=== PATIENT | female | born 2000 | race Caucasian/White ===

== ENCOUNTER 2020-09-25 22:43 | Observation (INO) | payer BC, SELFPAY ==
--- NOTE | ~2020-09-25 | MR_ITS ---
EXAMINATION: MR brain/brain stem wo/w con EXAM DATE: 09/26/2020 16:53 INDICATION: Confusion . TECHNIQUE: Magnetic resonance imaging (MRI) of the brain/brain stem obtained without contrast. Sagit floirna T1, axial diffusion, gradient echo (T2*), T1, T2, FLAIR sequences obtained. Patient was then inj ected with 20 cc intravenous Multihance contrast. Axial and coronal postcontrast T1 weighted sequence s obtained. Correlation is made to head CT from yesterday. FINDINGS: There are no areas of restricted diffusion to suggest acute infarction. There is no acute hemorrhage seen on the T2*, a hemosiderin sensitive sequence. No intraparenchymal brain mass. The ve ntricles are normal in size. There are no extra-axial collections. Flow voids are seen in the cereb ral arteries on the T2-weighted sequences consistent with their expected patency. The orbits are unr emarkable. Soft tissue is unremarkable. There are no areas of abnormal enhancement on the postcont rast images. IMPRESSION: Normal brain MRI examination. Reviewed, dictated and finalized at location A.
--- NOTE | ~2020-09-25 | CT_ITS ---
EXAMINATION: CT brain wo con DATE: 09/25/2020 23:34 INDICATION: Dizziness TECHNIQUE: Computed tomography (CT) of the head was performed without intravenous contrast. Sagittal and coronal reconstructions were performed. The mA was adjusted according to patient size. Iterative reconstruction technique was employed. The dose-length product was 605.33 mGy-cm. COMPARISON: None FINDINGS: No acute intracranial hemorrhage, acute infarction or abnormal extra axial fluid collection. Ventricl es are normal and symmetric. No mass/mass effect. The orbits, paranasal sinuses and mastoid air cells are normal. IMPRESSION: 1. Normal brain. No acute intracranial process. Reviewed, dictated and finalized at location A.
[2020-09-25 22:42] VITALS: BP 134/75; PULSE 80; RESP 17; TEMP 36.8; O2SAT 98
--- NOTE | 2020-09-25 22:46 | ED.GENADULT ---
HPI - General Adult General Chief complaint: Syncope Stated complaint: sore front of head - loc ; lethargic Time Seen by Provider: 09/25/20 22:45 Source: patient, EMS and RN notes reviewed Mode of arrival: EMS Limitations: no limitations History of Present Illness HPI narrative: Patient is 19 years old white female brought to the emergency room by ambulance from work because of sudden onset of feeling, dizziness and inability to speak clearly. 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 Resolved on arrival to the emergency room. Patient had similar symptoms lasted for almost 3 days at the end of April and beginning of May this year patient did not go to hospital at that time. Patient denies any loss of consciousness, fall or trauma, fever, chills, nausea, vomiting, chest pain, shortness of breath, back pain, abdominal pain or focal neuro deficit. Patient lives with her family, does not have a boyfriend, denies drug or alcohol use. Patient vapes, Review of Systems Review of Systems: Narrative: CONSTITUTIONAL: Denies fever, chills, or sweats. EYES: Denies visual changes, redness, or discharge. ENT: Denies rhinorrhea, congestion, sore throat, or otalgia. CARDIOVASCULAR: Denies chest pain, palpitations, or edema. RESPIRATORY: Denies cough or dyspnea. GASTROINTESTINAL: Denies abdominal pain, nausea, vomiting, or diarrhea. GENITOURINARY: Denies dysuria or hematuria. SKIN: Denies rash or itching. MUSCULOSKELETAL: Denies back pain, joint pain, or myalgia. NEUROLOGIC: Denies headache, numbness, or weakness. PSYCHIATRIC: Denies anxiety or depression. Exam Narrative: Exam Narrative: General appearance: Well-developed, well-nourished Skin: Normal color Head: Normocephalic, nontraumatic Eyes: Clear conjunctiva ENT: Oropharynx normal, ears normal, nose normal Neck: Supple, nontender Chest and respiratory: Airway patent, no respiratory distress, no accessory muscle use Heart: Regular rate/rhythm Abdomen: Soft, nontender, no organomegaly, quiet bowel sounds Vascular: Normal peripheral pulses, normal capillary refill. Musculoskeletal: Normal range of motion, nontender back Neurologic: Alert and oriented ?3, [employer] is normal as tested, no gross motor deficit Course Course Emergency Course: Improving Consultations Consultation #1: DEEJAY Date: 09/26/20 Time: 00:49 Consultation #2: ALEENA Date: 09/26/20 Time: 00:51 Vital Signs Vital signs: Vital Signs Temperature 36.8 C 09/25/20 22:42 Pulse Rate 80 09/25/20 22:42 Respiratory Rate 17 09/25/20 22:42 Blood Pressure 134/75 09/25/20 22:42 Pulse Oximetry 98 09/25/20 22:42 Temperature 36.8 C 09/25/20 22:54 Pulse Rate 82 09/25/20 23:51 Respiratory Rate 15 09/25/20 22:54 Blood Pressure 127/85 09/25/20 23:51 Pulse Oximetry 100 09/25/20 22:54 Medical Decision Making MDM Narrative Medical decision making narrative: Sudden onset of inability to speak and disorientation. High likely stress related. Versus seizure versus neurologic abnormality. Labs, CT head, orthostatic blood pressure, chest x-ray ordered. Further plan to follow Differential Diagnosis Differential Diagnosis: Stress related symptoms, drug abuse, seizure, neurologic abnormality Vital Signs Vital Signs: Vital Signs Temperature 36.8 C 09/25/20 22:42 Pulse Rate 80 09/25/20 22:42 Respiratory Rate 17 09/25/20 22:42 Blood Pressure 134/75 09/25/20 22:42 Pulse Oximetry 98 09/25/20 22:42 Temperature 36.8 C 09/25/20 22:54 Pulse Rate 82 09/25/20 23:51 Respiratory Rate
[2020-09-25 22:54] VITALS: BP 134/75; PULSE 75; RESP 15; TEMP 36.8; O2SAT 100
--- NOTE | 2020-09-25 22:58 | ECG_ITS ---
Measurements Intervals [place] Rate: 78 P: 4 AL: 116 QRS: 19 QRSD: 93 T: -7 QT: 356 QTc: 407 Interpretive Statements SINUS RHYTHM WITH SINUS ARRHYTHMIA WITH SHORT AL INTERVAL BORDERLINE T WAVE ABNORMALITY- INFERIOR LEADS BASELINE ARTIFACT- I, II, III, AVR, AVL, AVF, V1-V6 BORDERLINE ECG Electronically Signed On 09-26-2020 7:13:30 CDT by Frankie Sylvester D.O.
--- NOTE | 2020-09-25 22:59 | PC.NURSE ---
Pt presents to ED via EMS with complaints loc and subsequent headache rated 5/10 at this time. Pt unsure if she hit head; no obvious wounds or injury noted to head or face. Per EMS pt was found on the ground at work at which time no one had seen her for at least 15 minutes. Pt noted to be slow to respond. Pt is alert and oriented x3 and states the last thing she remember is getting really hot. Pt denies hx of seizure and admits loc in past due to pain related to kidney stones. Pt complains of lightheadedness and dizziness. Denies chest pain and sob. Denies use of blood thinners. Vitals are stable and pt in no obvious distress. Pt adds that she feels nauseous with photosensitivity. C-collar has been applied. IV inserted, blood drawn and sent to lab. Pt advised to press call button for assistance.
[2020-09-25 23:00] VITALS: BP 123/79; PULSE 75; RESP 16; O2SAT 98
--- NOTE | 2020-09-25 23:07 | PC.NURSE ---
c-collar removed by EDMD.
--- NOTE | 2020-09-25 23:07 | PC.NURSE ---
Pt assisted onto bedpan and was unable to urinate. Pt aware of the need for specimen and voices her understand. Pt noted to be faster to respond and is more alert and now oriented x4.
[2020-09-25 23:08] LABS: Basophils Percent Auto 0.3 % (0.2-1.2); Eosinophils Absolute Auto 0.1 K/mm3 (0-0.3); Eosinophils Percent Auto 1.7 % (0-4.4); Hematocrit 40.9 % (37.0-47.0); Hemoglobin 13.1 g/dL (12.0-15.0); Immature Granulocyte Absolute 0.02 K/mm3 (0.00-0.031); Immature Granulocyte Percent A 0.3 % (0-0.5); Lymphocytes Absolute Auto 2.13 K/mm3 (0.9-3.2); Lymphocytes Percent Auto 27.8 % (18.3-44.2); Mean Corpuscular Hemoglobin 29.2 pg (26-34); Mean Corpuscular Volume 91.3 fl (80-100); Mean Platelet Volume 10.8 fl (7.4-10.4); Monocytes Absolute Auto 0.5 K/mm3 (0.1-0.6); Monocytes Percent Auto 6.7 % (2.6-8.5); Neutrophils Absolute Auto 4.8 K/mm3 (1.3-6.7); Neutrophils Percent Auto 63.2 % (45.5-73.1); Platelet Count Result 249 k/mm3 (150-375); Red Blood Count 4.48 M/mm3 (4.2-5.4); Red Cell Distribution Width 13.2 % (11.5-14.5); White Blood Count 7.7 K/mm3 (4.5-10.0)
--- NOTE | 2020-09-25 23:20 | PC.NURSE ---
Spoke with mother and updated her on poc. Pt alert and oriented x4 with stable vitals and in no obvious distress. Urine specimen collected.
--- NOTE | 2020-09-25 23:35 | PC.NURSE ---
Pt to and from radiology via cart. Back in room resting on cart in its lowest position with call button and personal items within reach.
[2020-09-25 23:41] LABS: Anion Gap 9 mmol/L (8-16); Blood Urea Nitrogen 9 mg/dL (7-17); Carbon Dioxide 26 mmol/L (22-30); Chloride 105 mmol/L (98-107); Estimated CRCL calculation 116 ml/min; Estimated Glomerular Filt Rate > 60; Glucose 83 mg/dL (65-105); Potassium 3.9 mmol/L (3.4-5.0); Sodium 140 mmol/L (137-145)
[2020-09-25 23:47] LABS: Alanine Aminotransferase 15 U/L (4-35); Albumin Level 4.5 g/dL (3.5-5.1); Alkaline Phosphatase 69 U/L (38-126); Aspartate Amino Transferase 26 U/L (14-36); Bilirubin,Total 0.3 mg/dL (0.2-1.3)
[2020-09-25 23:48] VITALS: BP 120/68; PULSE 75
[2020-09-25 23:49] VITALS: BP 123/75; PULSE 72
[2020-09-25 23:51] VITALS: BP 127/85; PULSE 82
[2020-09-25 23:58] LABS: Ethanol < 10 mg/dL (<10)
[2020-09-26] VITALS (14 sets, daily range): BP systolic 102–133; BP diastolic 59–85; PULSE 61–92; RESP 16–20; TEMP 36.4–36.8; O2SAT 97–100
[2020-09-26 00:08] LABS: Amphetamine Screen Urine Negative (Negative); Barbiturate Screen Urine Negative (Negative); Benzodiazepines Screen Urine Negative (Negative); Cannabinoid Screen Urine Negative (Negative); Cocaine Screen Urine Negative (Negative); Methadone Screen Urine Negative (Negative); Opiate Screen Urine Negative (Negative); Phencyclidine Screen Urine Negative (Negative)
--- NOTE | 2020-09-26 02:12 | ECG_ITS ---
Measurements Intervals [place] Rate: 70 P: 17 MD: 115 QRS: 18 QRSD: 85 T: 5 QT: 373 QTc: 403 Interpretive Statements SINUS RHYTHM WITH SHORT MD INTERVAL BASELINE ARTIFACT- I, II, III, AVR, AVL, AVF, V1 BORDERLINE ECG Electronically Signed On 09-26-2020 7:15:32 CDT by Frankie Sylvester D.O.
--- NOTE | 2020-09-26 02:14 | ADMGEN ---
This patient, Caterina Garnica, was admitted to 2 Medical Room 240-01. Patient/family oriented to hospital policies and general routines including ID bracelet, bed and alarms, visiting hours, pain management, procedures, bathroom and other care routines, personal items, smoking policy, room service/diet, and visiting hours. Information on how to activate the Rapid Response Team has been discussed. Patient/Family are encouraged to report perceived risks to care and to ask questions if they do not understand what they are told or what they should do.
[2020-09-26 02:56] LABS: Troponin I < 0.012 ng/mL (0.000-0.034)
[2020-09-26 08:58] LABS: Cholesterol 166 mg/dL (0-200); HDL Direct 39 mg/dL; Triglycerides 73 mg/dL (<150)
[2020-09-26 09:09] LABS: LDL Cholesterol Direct 97 mg/dL
--- NOTE | 2020-09-26 09:14 | PM.IMHP ---
H&P: HPI History of Present Illness Date/Time: 09/26/20 09:14 Chief Complaint: Alteration of consciousness Narrative: This is a 19 year old woman with no chronic medical history, who presented to the ER with complaints of syncopal episode. The patient had been feeling well on 09/25/2020 and went to work around 6:00 a.m.. 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 Around 10:30 a.m. 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 She took her jacket off and then began feeling cold and overall not feeling well. She then states everything got ?hazy? and then she had a syncopal episode. She came to in realize she needed to talk to her senior production manager about what had happened and how she is feeling. She remembers talking to her senior production manager and then felt bad again and the next thing she remembers is hearing her coworkers talking to her, asking her questions but she was unable to answer them like she could not speak and could not move . She did not fall, hit her head or have any injuries because her coworkers were able to lay her down. Patient also remembers shaking. Red time the paramedics came and she was placed in the ambulance she was starting to come to some, but still having difficulty moving or speaking. She states at 3 in the ER for about 30 minutes she will return back to her baseline, other than having some fatigue. She still reports having some intermittent fatigue and feeling drained today. Otherwise she denies any complaints. Showed she was afebrile, non tachycardic, normal respiratory rate and oxygenation on room air, blood pressure 134/75. Labs showed CBC normal, CMP normal.Trop normal. TSH normal . Urine drug screen normal. Normal ethyl alcohol level. Code Status- Full Code POA- MotherCorine Review of Systems Review of Systems: All systems reviewed & are unremarkable except as noted in HPI and below PMFSH Past Medical History Medical History Kidney stone Vapes non-nicotine containing substance Surgical History Surgical History H/O lithotripsy Family History Family History (Updated 09/26/20 @ 16:41 by Alley Lomeli PA-C) Father Acute myocardial infarction Grandparent Cerebrovascular accident Social History Social History (Updated 09/26/20 @ 16:42 by Alley Lomeli PA-C) Tobacco type: e-cigarettes/vaping Additional smoking assessment comments: Patient smokes non-nicotine vape occasionally. Has not used for weeks. 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 [employer] concerns: No Meds Home Medications and Allergies Home Medications Medication Instructions Recorded Confirmed Type No Home Medications 09/26/20 09/26/20 History Allergies Allergy/AdvReac Type Severity Reaction Status Date / Time No Known Allergies Allergy Verified 09/26/20 03:23 Vital Signs Vital Signs - 24 hr 09/25/20 22:42 09/25/20 22:54 09/25/20 23:00 Temperature 98.3 F 98.3 F Pulse Rate 80 75 75 Respiratory Rate 17 15 16 Blood Pressure 134/75 134/75 123/79 Pulse Oximetry 98 100 98 09/25/20 23:48 09/25/20 23:49 09/25/20 23:51 Temperature Pulse Rate 75 72 82 Respiratory Rate Blood Pressure 120/68 123/75 127/85 Pulse Oximetry 09/26/20 00:00 09/26/20 01:00 09/26/20 04:00 Temperature 97.7 F Pulse Rate 73 92 61 Respiratory Rate 19 17 20 Blood Pressure 121/79 133/85 102/59 L Pulse Oximetry 98 97 99 09/26/20 05:12 09/26/20 05:13 09/26/20 08:32 Temperature 97.7 F 97.7 F Pulse Rate 76 87 Respiratory Rate 20 20 Blood Pressure 122/75 127/81 Pulse Oximetry 100 100 100 Exam Narrative: Exam Narrative: General: 19-year-old woman sitting up in bed watching TV. Appears comfortab
--- NOTE | 2020-09-26 09:27 | WPDNEURCNPN ---
Assessment and Plan Assessment and plan (1) Acute alteration in mental status: Code(s): R41.82 - Altered mental status, unspecified Status: Acute Additional Plan considering the symptomatology will obtain a routine EEG to rule out the possibility of seizure though it is extremely unlikely and further recommendation accordingly Consult date: 09/26/20 Time Seen: 09:15 HPI: Caterina Garnica is a 19 year old female Admitted to the hospital through the emergency room where she was brought by the ambulance from work because sudden onset of feeling dizzy and inability to speak clearly patient had been at [employer] for the last 1 week as a new employee which she considered stressful 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 subsequently got dizzy could not speak and became disoriented but patient had a similar symptom lasted for almost 3 days at the end of April and beginning of May this year though at that time she did not go to any hospital she lives with her family does not have a boyfriend and denies drug or alcohol use evaluation documented normal CBC normal BMP and normal toxicology screen CT scan of the head was normal Review of Systems Review of Systems: All systems reviewed & are unremarkable except as noted in HPI and below PMFSH Family History Family History Father Acute myocardial infarction Social History Social History Smoking status: Current every day smoker Tobacco type: e-cigarettes/vaping Alcohol intake: current Drinks per week: 1 Substance use: never Substance use type: does not use Spiritual care concerns: No Meds Home Medications and Allergies Home Medications Medication Instructions Recorded Confirmed Type No Home Medications 09/26/20 09/26/20 History Allergies Allergy/AdvReac Type Severity Reaction Status Date / Time No Known Allergies Allergy Verified 09/26/20 03:23 Vital Signs Vital Signs - 24 hr 09/25/20 22:42 09/25/20 22:54 09/25/20 23:00 Temperature 36.8 C 36.8 C Pulse Rate 80 75 75 Respiratory Rate 17 15 16 Blood Pressure 134/75 134/75 123/79 Pulse Oximetry 98 100 98 09/25/20 23:48 09/25/20 23:49 09/25/20 23:51 Temperature Pulse Rate 75 72 82 Respiratory Rate Blood Pressure 120/68 123/75 127/85 Pulse Oximetry 09/26/20 00:00 09/26/20 01:00 09/26/20 04:00 Temperature 36.5 C Pulse Rate 73 92 61 Respiratory Rate 19 17 20 Blood Pressure 121/79 133/85 102/59 L Pulse Oximetry 98 97 99 09/26/20 05:12 09/26/20 05:13 09/26/20 08:32 Temperature 36.5 C 36.5 C Pulse Rate 76 87 Respiratory Rate 20 20 Blood Pressure 122/75 127/81 Pulse Oximetry 100 100 100 Exam Const: General: cooperative, healthy appearing, comfortable, no acute distress, alert and awake Nutritional Appearance: overweight Orientation/consciousness: oriented to person, oriented to place and oriented to time Limitations: no limitations HENMT: Head: normal to inspection Ears: hearing grossly normal bilaterally General nose exam: Normal external nose present Face and sinus: normal facial exam Mouth: Yes Normal oral and palatal mucosa present Eyes: General: appearance normal, both eyes and all related structures Visual House: normal visual house by confrontation Alignment and Position: alignment normal Periorbital: periorbital findings normal Eyelids: eyelids normal Conjunctivae: conjunctivae normal Sclera: sclerae normal Cornea: corneas normal Pupils: Equal, round and reactive pupils present EOM: EOMs intact bilaterally Direct Ophthalmoscopy: normal light reflex Neck: Neck: full ROM Resp: Effort & Inspection: normal respiratory effort Cardio: Rate: regular rate Rhythm: regular rhythm Neuro: General: patient oriented x3 Cranial nerves: Yes CN's II-XII intact bilaterally Cognition (Neuro): normal cognition Speech: normal speech Gai
--- NOTE | 2020-09-26 11:07 | PM.CNCAR ---
Assessment and Plan Assessment and plan (1) Shortened NC interval: Code(s): R94.31 - Abnormal electrocardiogram [ECG] [EKG] Status: Acute Assessment and Plan: 19 y/o with no significant past medical history who presents with near syncope who is seen in cardiac consultation for abnormal EKG She has incidental finding of short NC interval which is not related to her current presentation with dizziness and near syncope which appears probably vasovagal As for her EKG findings, she has short NC but no delta wave still can't rule out preexcitation syndrome/pattern. She will need echocardiogram to rule out structural heart disease as well as plain EKG stress test for risk stratification for arrhythmia with possible accessary pathway. Both Echo and EKG can be arranged in outpatient settings She is stable for discharge from cardiac standpoint with follow up in office in 1-2 weeks (2) Near syncope: Code(s): R55 - Syncope and collapse Status: Acute Assessment and Plan: Probably vasovagal. 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 She reported speech difficulty at some point. She feels almost back to normal except for lightheadedness. Her EKG showed normal sinus rhythm with short NC interval 115 ms. No obvious delta wave or WPW pattern noted. She denies chest pain, palpitations or syncope prior to this event. Tele monitor shows sinus rhythm with no arrhythmias She smokes, trying to quit. Denies alcohol or drugs. No family history of heart disease Reason For Visit: Confusion, dizziness Review of Systems Review of Systems: All systems reviewed & are unremarkable except as noted in HPI and below Constitutional: Constitutional: Denies fatigue and Denies headache(s) Eyes: Eyes: Denies blurry vision ENT: Reports Normal hearing present and Denies headache(s) Cardiovascular: Cardiovascular: Denies chest pain, Denies diaphoresis, Denies pedal edema, Denies leg edema, Denies lightheadedness, Denies palpitations and Denies dyspnea Respiratory: Respiratory: Denies cough and Denies dyspnea Gastrointestinal: Gastrointestinal: Denies abdominal pain Musculoskeletal: Musculoskeletal: Denies back pain Neurologic: Reports Normal hearing present and Denies headache(s) Psychiatric: Psychiatric: Denies anxiety Endocrine: Endocrine: Denies fatigue and Denies palpitations PMF Family History Family History Father Acute myocardial infarction Social History Social History Smoking status: Current every day smoker Tobacco type: e-cigarettes/vaping Alcohol intake: current Drinks per week: 1 Substance use: never Substance use type: does not use Spiritual care concerns: No Meds Home Medications and Allergies Home Medications Medication Instructions Recorded Confirmed Type No Home Medications 09/26/20 09/26/20 History Allergies Allergy/AdvReac Type Severity Reaction Status Date / Time No Known Allergies Allergy Verified 09/26/20 03:23 Vital Signs Vital Signs - 24 hr 09/25/20 22:42 09/25/20 22:54 09/25/20 23:00 Temperature 36.8 C 36.8 C Pulse Rate 80 75 75 Respiratory Rate 17 15 16 Blood Pressure 134/75 134/75 123/79 Pulse Oximetry 98 100 98 09/25/20 23:48 09/25/20 23:49 09/25/20 23:51 Temperature Pulse Rate 75 72 82 Respiratory Rate Blood Pressure 120/68 123/75 127/85 Pulse Oximetry 09/26/20 00:
--- NOTE | 2020-09-26 17:22 | WPDNEUROLOGY ---
Neurology EEG Report General Information Date of Study: 09/26/20 TEST eeg DIAGNOSIS Possible seizure with postictal state CONDITION OF RECORDING awake drowsy and sleep EEG NUMBER [id number] CLINICAL HISTORY patient reported she was at work when she became heart dizzy and then blacked out had a little confusion afterwards but feels fine now. EEG DESCRIPTION Basic resting occipital frequency consists of low to medium voltage 8 to 10 hertz per 2nd alpha admixed with minimal amount of low-voltage 15 to 18 hertz per 2nd beta. During our dizziness low-voltage beta activity seen diffusely admixed with waxing and waning posterior alpha rhythm. Hyperventilation not done. Photic stimulation not done. Non paroxysmal. Nonfocal. Nonlateralizing. IMPRESSION Normal record
[2020-09-27] VITALS: PULSE 75
[2020-09-27 02:00] VITALS: BP 112/48; PULSE 66; RESP 20; TEMP 36.3; O2SAT 98
[2020-09-27 04:00] VITALS: PULSE 58
[2020-09-27 06:00] VITALS: BP 120/59; PULSE 67; RESP 20; TEMP 36.6; O2SAT 99
[2020-09-27 08:00] VITALS: PULSE 90
--- NOTE | 2020-09-27 08:36 | PM.DS ---
DS: Admitting Diagnosis Admitting Diagnosis Admitting Diagnosis: Unresponsive episode DS: Discharge Diagnosis Discharge Diagnosis (1) Acute alteration in mental status: Code(s): R41.82 - Altered mental status, unspecified Status: Acute Assessment and Plan: Differential includes vasovagal syncope versus anxiety versus seizure verses dehydration versus other Emergency room consult to neurology and cardiology for further evaluation on her symptoms. Will continue monitoring the patient on telemetry. CT brain showed no acute abnormality. MRI, EEG have been ordered from the emergency department. (2) Shortened [place] interval: Code(s): R94.31 - Abnormal electrocardiogram [ECG] [EKG] Status: Acute Assessment and Plan: Cardiology has been consulted by the ER. (3) Vapes non-nicotine containing substance: Code(s): Z72.89 - Other problems related to lifestyle Status: Inactive Assessment and Plan: Given Education about quitting vaping. She does not use any nicotine in the vape. She states she is going to quit after this hospitalization. DS: Summary Hospital Course Reason for hospitalization: This is a 19 year old woman with no chronic medical history, who presented to the ER with complaints of two episodes of syncope vs seizure [employer] while at work. Initial vitals showed she was afebrile, non tachycardic, normal respiratory rate and oxygenation on room air, blood pressure 134/75. Labs showed CBC normal, CMP normal.Trop normal. TSH normal . Urine drug screen normal. Normal ethyl alcohol level. CT brain was unremarkable. The patient was admitted into the hospital for further evaluation and workup with a consult placed to neurology and cardiology. She was placed on telemetry which showed normal sinus rhythm with no acute arrhythmia. Cardiology saw the patient and recommended outpatient echo and stress test after discharge. Neurology evaluated the patient who performed an EEG which was normal and MRI which was normal. Patient is feeling well at this time without any concerns or issues. The neurologist at this time recommends discharge to follow-up in his office in 4-6 weeks. Informed the patient that she cannot drive until cleared by the neurologist. 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 The patient understands and agrees with the plan all questions answered. Hospital Course: See above Status at Discharge Cognitive/behavioral status at discharge: Stable, improved. Time Spent with Patient Time attestation: Total time spent providing and/or coordinating discharge services: 35 Time spent: Greater than 30 minutes Exam Narrative: Exam Narrative: General: 19-year-old woman sitting up in bed watching TV. Appears comfortable. In no acute distress. Skin: No jaundice or cyanosis. Good skin turgor. Neck: Full range of motion. Supple. Nontender. Respiratory: Lungs are clear to auscultation bilaterally. No bony chest wall tenderness. Cardiovascular: The heart has a regular rate and rhythm without murmur. No carotid bruits. Lower extremities: No lower extremity edema. Distal pulses are easily palpated. No calf tenderness to palpation. Gastrointestinal: The abdomen is soft, nontender and nondistended with active bowel sounds. Psychiatric: Lucid and oriented. Memory intact. Neurologic: No focal deficits. Speech is clear. No facial drooping. DS: Data Data Completed and Pending Labs on day of discharge: Labs from last 24 hours 09/26/20 09/26/20 08:34 08:34 Triglycerides 73 Cholesterol 166 LDL Cholesterol Direct 97 HDL Direct 39 TSH (Reflex) 1.420 Discharge Plan Discharge Attending physician on discharge: Annmarie Saba provid
== END 2020-09-27 13:20 | disposition home or self-care (01) ==
LOC: ANHED 09-26 00:36 → ANH2MED 09-26 00:40
PROVIDERS: Nurse Practitioner; Physician Assistant; Admitting Provider Family Medicine; Emergency Provider Emergency Medicine; Visit Provider Internal Medicine
DX: R41.82 Altered mental status, unspecified (principal); R94.31 Abnormal electrocardiogram [ECG] [EKG]
CPT/HCPCS: 36415; 70450; 70553; 80048; 80061; 80076; 80307; 81025; 84443; 84484; 85025; 93005; 95816; 99285; A9577; G0378; L0140